=== PATIENT | male | born 1950 | race Caucasian/White ===

== ENCOUNTER 2016-10-21 07:15 | Day surgery (SDC) | payer MEDICARE ==
--- NOTE | 2016-10-16 12:51 | HISTORY AND PHYSICAL E ---
History and Physical NAME: RENU MAHONEY : 1950 AGE: 66Y ADMITTED: 10/21/2016 ROOM: CHIEF COMPLAINT: Patient admitted regarding colon screening. Referred to us by [facility]. MEDICATIONS: 1. Lopressor. 2. Amlodipine. 3. Nexium. 4. Fish oil. 5. Lasix. 6. Metoprolol. 7. Simvastatin. SOCIAL HISTORY: Single. Patient does not smoke. Drinks rarely. PAST SURGICAL HISTORY: Negative. REVIEW OF SYSTEMS: CARDIOVASCULAR: Hypertension. GASTROINTESTINAL: Colon screening. ONCOLOGY/HEMATOLOGY: Negative. NEUROLOGY: Negative. FAMILY HISTORY: Father had cardiac disease. Mom had cardiac disease. PHYSICAL EXAMINATION: GENERAL: Pleasant, alert and oriented. VITAL SIGNS: Blood pressure is 120/70, pulse 80, respirations 18, temperature 98. HEAD, EYES, EARS, NOSE, THROAT: Normal. NECK: Supple. LUNGS: Clear. ABDOMEN: Soft. NEUROLOGIC: Exam negative. CONCLUSION: Colon screening. DICTATING PHYSICIAN: SAM SIMMONS M.D. [id number] PHY#: [id number] ID: [id number] JOB#: [id number] ACCT: [id number] cc:SAM SIMMONS M.D. >
[~2016-10-21 07:15] MED LIST: EPINEPHRINE INJ 1 MG/10 ML DISP.SYRIN ONE; FLUMAZENIL INJ 0.5 MG/5 ML VIAL IV ONE; GLUCAGON,HUMAN RECOMB 1 MG INJ ONE; GLYCOPYRROLATE INJ 0.4 MG/2 ML VIAL ONE; LIDOCAINE 2% JELLY 30 ML TUBE ONE; NALOXONE HCL INJ/PF 0.4 MG/1 ML SDV ONE; ONDANSETRON HCL INJ/PF 4 MG/2 ML SDV ONE
[2016-10-21] MEDS: MIDAZOLAM 2 MG/2 ML INJ ONE ×2 (08:12→08:16)
[2016-10-21] MEDS: FENTANYL CITRATE INJ/PF 100 MCG/2 ML AMPUL ONE ×3 (08:20→08:24)
[2016-10-21 09:41] VITALS: BP 136/76
[2016-10-21 10:15] LABS: ABSOLUTE BASOPHILS # (AUTO) 0.1 10^3/uL (0.0-0.2); ABSOLUTE EOSINOPHILS # (AUTO) 0.4 10^3/uL (0.0-0.6); ABSOLUTE LYMPHOCYTES (AUTO) 1.3 10^3/uL (0.5-4.7); ABSOLUTE MONOCYTES (AUTO) 0.8 10^3/uL (0.1-1.4); BASOPHILS % (AUTO) 0.8 % (0-2); EOSINOPHILS % (AUTO) 4.9 % (0-6); HEMATOCRIT 41.5 % (37.9-51.0); HEMOGLOBIN 13.7 g/dL (13.5-17.0); HGB HCT DIFFERENCE -0.4; LYMPHOCYTES % (AUTO) 17.1 % (13-45); MEAN CORPUSCULAR HEMOGLOBIN 28.2 pg (27.0-33.4); MEAN CORPUSCULAR HGB CONC 32.9 g/dL (32.0-36.0); MEAN CORPUSCULAR VOLUME 86 fl (80-97); MONOCYTES % (AUTO) 10.5 % (3-13); RED BLOOD COUNT 4.85 10^6/uL (4.35-5.55); RED CELL DISTRIBUTION WIDTH 21.3 % (11.5-14.0); SEGMENTED NEUTROPHILS % (AUTO) 66.7 % (42-78); WHITE BLOOD COUNT 7.5 10^3/uL (4.0-10.5)
--- NOTE | 2016-10-21 14:12 | OPERATIVE REPORT E ---
Operative Report NAME: RENU MAHONEY : 1950 AGE: 66Y DATE OF SURGERY: 10/21/2016 ROOM: PREOPERATIVE DIAGNOSIS: Colon screening. POSTOPERATIVE DIAGNOSIS: Sigmoid diverticulosis, severe. PROCEDURE: Colonoscopy. SURGEON: SAM SIMMONS M.D. TISSUE REMOVED OR ALTERED: None. ANESTHESIA: Versed 3, fentanyl 100. DESCRIPTION: Rectal exam normal. Sigmoid diverticulosis. Descending colon diverticulosis, foamy colon. Prep adequate, but too much foam. Transverse colon normal. Ascending normal. Cecum normal. Scope withdrawn from cecum, ascending, transverse, descending, sigmoid all the way to the rectum. CONCLUSION: Severe diverticulosis, sigmoid descending colon no polyps. Because the foam and redundant colon and large amount of diverticulosis, recommendation followup colonoscopy after 3-5 years with better prep. DICTATING PHYSICIAN: SAM SIMMONS M.D. [id number] PHY#: [id number] ID: [id number] JOB#: [id number] ACCT: [id number] cc:SAM SIMMONS M.D. >
--- NOTE | 2016-10-21 14:36 | DISCHARGE SUMMARY E ---
Discharge Summary NAME: RENU MAHONEY : 1950 AGE: 66Y ADMITTED: 10/21/2016 DISCHARGED: 10/21/2016 HISTORY: Patient who is 66 years old, presented for colon screening. FINDINGS: Today's colonoscopy successful to the cecum. Sigmoid descending colon: Diverticulosis, severe. No evidence of polyps. Mucosae of the colon redundant and there is no evidence of polyps. CONCLUSION: 1. NO POLYPS TODAY. 2. SIGMOID DIVERTICULOSIS. 3. LARGE AMOUNT OF FOAMY BUBBLES. RECOMMENDATION/PLAN: 1. I recommend follow-up colonoscopy after 3 years with better prep. 2. Soft diet. 3. Hold aspirin 2 days. 4. Baseline CBC with diff. DICTATING PHYSICIAN: SAM SIMMONS M.D. [id number] PHY#: [id number] ID: [id number] JOB#: [id number] ACCT: [id number] cc:SAM SIMMONS M.D. >
== END 2016-10-21 10:00 | disposition home or self-care (01) ==
LOC: END 07:15
PROVIDERS: ATTEND Specialist
PROC: 0DJD8ZZ Inspection of Lower Intestinal Tract, Via Natural or Artificial Opening Endoscopic (ICD-10-PCS; principal; 2016-10-21 08:00)
DX: Z12.11 Encounter for screening for malignant neoplasm of colon (principal); K57.30 Diverticulosis of large intestine without perforation or abscess without bleeding; Z79.899 Other long term (current) drug therapy; Z12.5 Encounter for screening for malignant neoplasm of prostate; I10 Essential (primary) hypertension
CPT/HCPCS: 36415; 85025; G0121; G0103; J2250; J3010; J1610; J2405; 45378; J0171; J2310; J3490